=== PATIENT | female | born 1955 | race Caucasian/White ===

== ENCOUNTER 2017-02-26 09:26 | Emergency (ER) | payer OTHER ==
[~2017-02-26] VITALS: Ht 167.6 cm; Wt 78.9 kg
[2017-02-26] MEDS ORDERED: ALLOPURINOL100 M1 ORAL (09:42)
[2017-02-26] MEDS ORDERED: ANUSOL-HC25 MG RECTAL (10:18)
[2017-02-26 10:35] VITALS: BP 86/54
--- NOTE | 2017-02-26 14:19 | Emergency Room Report ---
History of Present Illness General Chief Complaint: General Complaint Source: Patient Present Illness HPI Patient has a history of hemorrhoids. Patient has occasional rectal bleeding. Patient is taking on his own the past but she states it causes itching. And burning. She denies any fever chest pain shortness breath. She presents emergency department today complaining rectal pain location of bleeding with with bowel movements. She denies any fever nausea vomiting diarrhea chills. She has not seen in linen room attendant recently. She has not had a recent colonoscopy. She says insurance problems which is what is preventing her from getting a colonoscopy.No other modifying factors. No other associated signs and symptoms. No other complaints were noted. Allergies: Coded Allergies: BALSAM LUDMILA (Verified Allergy, Unknown, 02/26/17) BISMUTH SUBGALLATE (Verified Allergy, Unknown, 02/26/17) MINERAL OIL (Verified Allergy, Unknown, 02/26/17) PRAMOXINE (Verified Allergy, Unknown, 02/26/17) RESORCINOL (Verified Allergy, Unknown, 02/26/17) STARCH (Verified Allergy, Unknown, 02/26/17) ZINC OXIDE (Verified Allergy, Unknown, 02/26/17) Patient History Past Medical History: none Past Surgical History: none Pertinent Family History: none Social History: Denies: smoking, alcohol use, drug use Now: No Reviewed Nursing Documentation: PMH: Agreed, PSxH: Agreed Nursing Documentation-PMH Past Medical History: No History, Except For Hx Gastrointestinal Problems: Yes - hemorrhoids Review of Systems All Other Systems: negative except mentioned in HPI Physical Exam Vital Signs Date Time Temp Pulse Resp B/P (MAP) Pulse Ox O2 Delivery O2 Flow Rate FiO2 02/26/17 09:29 98.2 95 17 86/54 95 Room Air Sp02 EP Interpretation: reviewed, normal General Appearance: normal inspection, well appearing, no apparent distress, alert Head: atraumatic Eyes: bilateral eye normal inspection ENT: normal ENT inspection, hearing grossly normal, normal voice Neck: normal inspection, full range of motion, supple, no bony tend Respiratory: normal inspection, lungs clear, normal breath sounds, no respiratory distress, no retraction, no wheezing Cardiovascular #1: regular rate, rhythm, no edema Gastrointestinal: normal inspection, normal bowel sounds, non tender, soft, no guarding, no hernia Rectal: other - rectal tenderness no evidence of bleeding or abscess external hemorrhoid, not thromosized Genitourinary: no CVA tenderness Musculoskeletal: normal inspection, back normal, normal range of motion Neurologic: normal inspection, alert, responsive, speech normal Psychiatric: normal inspection, judgement/insight normal, mood/affect normal Skin: normal inspection, normal color, no rash Medical Decision Making Diagnostic Impression: Primary Impression: Hemorrhoid ER Course Patient presents emergency department to rectal bleeding or rectal pain. Differential considerations include rectal abscess, colitis, hemorrhoids. Patient's exam is benign symptoms and cardiology is consistent with hemorrhoids. Recommend outpatient followup and outpatient colonoscopy. Given patient a prescription for Anusol with hydrocortisone.Patient is advised to follow up with primary doctor in 2-3 days and return the emergency room for any worsening symptoms and as needed. Last Vital Signs Date Time Temp Pulse Resp B/P (MAP) Pulse Ox O2 Delivery O2 Flow Rate FiO2 02/26/17 10:35 95 17 86/54 95 Room Air 02/26/17 10:35 98.2 Status: improved Disposition: HOME, SELF-CARE Condition: Stable Scripts Hydrocortisone Acetate* (ANUSOL-HC*) 25 Mg Supp.rect 1 SUPP RECTAL TWICE A DAY for 5 Days, SUPP Prov: LUH ELLIS M.D. 02/26/17 Referrals: PRISCA ORTEGA MARIO VOSOGHI, MEHRDAD Patient Instructions: Hemorrhoids, [id number], Hemorrhoids LUH ELLIS M.D. Feb 26, 2017 14:19
== END 2017-02-26 10:39 | disposition home or self-care (01) ==
LOC: EMR 10:10
DX: K64.4 Residual hemorrhoidal skin tags (principal); Z88.8 Allergy status to other drugs, medicaments and biological substances
CPT/HCPCS: 99283